=== PATIENT | female | born 1975 | race Caucasian/White ===

== ENCOUNTER 2017-03-14 17:22 | Emergency (ER) | payer OTHER ==
--- NOTE | 2017-03-14 19:34 | RAD ---
INDICATION: No onset headache. COMPARISON: There are no prior studies available for comparison. TECHNIQUE: Contiguous axial sections of the brain were obtained from the skull base to the vertex without contrast. FINDINGS: The ventricles, cisterns and sulci are within normal limits. No significant focal abnormality or mass effect is seen. There is no evidence for hemorrhage. There are small areas of decreased density present toward the skull base in the medial temporal lobes most consistent with Virchow-Kwadwo spaces. No significant focal osseous abnormality is seen. The visualized portion of the paranasal sinuses and mastoid air cells appear clear. IMPRESSION: NO EVIDENCE FOR ACUTE INTRACRANIAL ABNORMALITY.
[2017-03-14] MEDS ORDERED: diPHENhydraMINE IV* 50 MG/ML 1 ml VIAL (BENADRYL) IM ONE (20:08)
[2017-03-14] MEDS ORDERED: Ketorolac INJ* 30 MG/ML 1 ML VIAL IV ONE (20:08)
[2017-03-14] MEDS ORDERED: NS 0.9% 1000 ML* 1,000 ML IV ONE (20:08)
[2017-03-14] MEDS ORDERED: diPHENhydraMINE IV* 50 MG/ML 1 ml VIAL (BENADRYL) IV ONE (20:36)
[2017-03-14] MEDS ORDERED: Acetaminop/Codeine 30 MG TAB* 1 TAB (300 MG/30 MG) PO ONE (21:33)
[2017-03-14 22:02] VITALS: BP 144/98
--- NOTE | 2017-04-06 16:11 | UC ---
Arben Tyler Nikita, scribed for Sindy Patel DO on 03/14/17 at 1903 . Headache HPI - HPI Summary HPI Summary: This patient is a 41 year old F presenting to [facility] with a chief complaint of RIVERS since 2 days ago. The pain went away after taking Tylenol and Ibuprofen. She woke up this morning with a RIVERS that was alleviated by Tylenol, but the pain came back again at 1600. Pt took 1300 mg of Tylenol at that time which did not help symptoms. The CC is described as in the whole head and throbbing; pain is worst in frontal region and back of neck. The patient rates the pain 6/10 in severity. Symptoms aggravated by nothing. Symptoms alleviated by Ibuprofen and Tylenol (last episode did not alleviate symptoms). Patient reports sinus congestion (today). Patient denies fever, chills, diaphoresis, nasal drainage, cough, CP, N/V/D, abdominal pain, urinary symptoms, muscle aches, joint pain, aggravation by bright lights, blurred vision, dizziness, and ringing in ears. Pt has second hand smoke exposure at home. - History Of Current Complaint Chief Complaint: UCHeadache Stated Complaint: HEADACHE Time Seen by Provider: 03/14/17 18:38 Hx Obtained From: Patient Hx Last Menstrual Period: spotting currently Onset/Duration: Sudden Onset - 1st episode was 2 days ago and another one this morning, Still Present Onset Of Symptoms: Sudden, Still Present Initially Headache Was: Initial Pain Scale(0-10)= - 6/10, Moderate Currently Pain Is: Current Pain Scale(0-10)= - 6/10, Moderate Pain Intensity: 6 Pain Scale Used: 0-10 Numeric Timing: Constant - alleviated by Tylenol ion 1st episode but not this episode Character: Throbbing Location of Headache: Diffuse - in head, Frontal - worse in frontal and back of neck Aggravating Factor(s): Nothing Allevating Factor(s): Medication - Ibuprofen and Tylenol in 1st episode Associated Signs And Symptoms: Positive: Other (Noted In Comments) - Patient reports sinus congestion (today). Patient denies fever, chills, diaphoresis, nasal drainage, cough, N/V/D, abdominal pain, urinary symptoms, muscle aches, joint pain, aggravation by bright lights, blurred vision, dizziness, and ringing in ears. - Allergies/Home Medications Allergies/Adverse Reactions: Allergies Allergy/AdvReac Type Severity Reaction Status Date / Time NSAIDs AdvReac GI Upset Verified 03/14/17 17:31 Home Medications: Home Medications Acetaminophen [Tylenol] 1,300 mg PO ONCE PRN 03/14/17 [History Confirmed ] Biotin 1 dose PO DAILY 03/14/17 [History Confirmed 03/14/17] Control 1 tab PO DAILY 03/14/17 [History Confirmed 03/14/17] Venlafaxine ER (NF) [Effexor ER (NF)] 150 mg PO DAILY 03/14/17 [History Confirmed 03/14/17] PMH/Surg Hx/FS Hx/Imm Hx Endocrine History: Diabetes - gestational Cardiovascular History: Hypertension GI/ History: Gastroesophageal Reflux - Surgical History Surgical History: Yes Surgery Procedure, Year, and Place: Cholecystectomy, 2012, [facility] [place]. Gastric Bypass , 2010, [facility] [place]. Left Ankle ORIF, 2004, [facility]. Sinus surgery 2015 - Family History Known Family History: Positive: Hypertension, Diabetes Negative: Cardiac Disease - Social History Alcohol Use: Rare Substance Use Type: None Smoking Status (MU): Former Smoker - Immunization History Most Recent Influenza Vaccination: Fall 2013 Review of Systems Constitutional: Other - Denies fever, chills Skin: Other - Denies diaphoresis Eyes: Other - Denies blurred vision ENT: Sinus Congestion, Other - Denies nasal drainage, ringing in ears Respiratory: Other - Denies cough, SOB Cardiovascular: Other - Denies CP Gastrointestinal: Other - Denies N/V/D, abdominal pain Genitourinary: Other - Denies urinary symptoms Musculoskeletal: Other: - Denies muscle aches, joint pain Neurological: Headache - diffuse in head but worse in frontal region and abck of neck; not aggravated by bright lights, Other - Denies dizziness All Other Systems Reviewed And Are Negative: Yes Physical Exam Triage Information Reviewed: Yes Appearance: Well-Appearing, Well-Nourished, Pain Distress - Mild Vital Signs: Initial Vital Signs Temp 99.1 F 03/14/17 17:25 Pulse 88 03/14/17 17:25 Resp 16 03/14/17 17:25 BP 161/103 03/14/17 17:25 Pulse Ox 99 03/14/17 17:25 Vital Signs Reviewed: Yes Eyes: Positive: Conjunctiva Clear. Negative: Discharge ENT: Positive: Hearing grossly normal, TMs normal. Negative: Tonsillar swelling , Tonsillar exudate, Trismus, Muffled/hoarse voice Neck exam: Normal Neck: Positive: Supple Respiratory: Positive: Lungs clear, Normal breath sounds, No respiratory distress, No accessory muscle use Cardiovascular: Positive: RRR, No Murmur Musculoskeletal Exam: Normal Neurological: Positive: Alert, Muscle Tone Normal, Other: - A&Ox3, CN II-XII INTACT, SENSORY MOTOR INTACT, REFLEXES INTACT, NO CEREBELLAR SIGNS, FACIAL SYMMETRY, NEGATIVE ROMBERG, NORMAL GAIT Psychological Exam: Normal Psychological: Positive: Age Appropriate Behavior Skin Exam: Normal, Other - Warm, Dry, Normal color - Additional Comments GCS 15 Diagnostics - Radiology Brain CT Radiology Interpretation Completed By: Radiologist - NO EVIDENCE FOR ACUTE INTRACRANIAL ABNORMALITY. [facility] physician agrees with this radiology report. Headache Course/Dx - Course Course Of Treatment: This patient is a 41 year old F presenting to [facility] with a chief complaint of RIVERS since 2 days ago. The pain went away after taking Tylenol and Ibuprofen. She woke up this morning with a RIVERS that was alleviated by Tylenol , but the pain came back again at 1600. Pt took 1300 mg of Tylenol at that time which did not help symptoms. The CC is described as in the whole head and throbbing; pain is worst in frontal region and back of neck. The patient rates the pain 6/10 in severity. Symptoms aggravated by nothing. Symptoms alleviated by Ibuprofen and Tylenol (last episode did not alleviate symptoms). Patient reports sinus congestion (today). Patient denies fever, chills, diaphoresis, nasal drainage, cough, CP, N/V/D, abdominal pain, urinary symptoms, muscle aches , joint pain, aggravation by bright lights, blurred vision, dizziness, and ringing in ears. Pt has second hand smoke exposure at home. NO EVIDENCE FOR ACUTE INTRACRANIAL ABNORMALITY. [facility] physician agrees with this radiology report. In the ED course, pt was given fluids, Toradol, and Benadryl. Medications reviewed this visit. High blood pressure noted. Pt will be discharged. Pt is agreeable with this plan. - Differential Dx/Diagnosis Provider Diagnoses: Elevated blood pressure without diagnosis of hypertension. Headache. Discharge - Discharge Plan Condition: Stable Disposition: HOME Patient Education Materials: General Headache (ED) Referrals: Pj Bell MD [Primary Care Provider] - 1 Day (Please follow up with PCP tomorrow.) Additional Instructions: Your blood pressure was elevated at this visit. That does not mean you have hypertension, it is probably due to your current condition. Please follow up with your primary care provider. The documentation as recorded by the Arben burnette Nikita accurately reflects the service I personally performed and the decisions made by me, Sindy Patel DO.
== END 2017-03-14 21:53 | disposition home or self-care (01) ==
LOC: UCEAST 17:22
DX: R51 Headache (principal); R09.81 Nasal congestion; I10 Essential (primary) hypertension; K21.9 Gastro-esophageal reflux disease without esophagitis; Z90.49 Acquired absence of other specified parts of digestive tract; Z98.84 Bariatric surgery status; Z88.6 Allergy status to analgesic agent; Z87.891 Personal history of nicotine dependence
CPT/HCPCS: 70450; 96361; 96365; 96374; 99212; A9270-GY; G0463; J1200; J1885

== ENCOUNTER 2018-03-27 21:09 | Emergency (ER) | payer OTHER ==
--- OUTSIDE RECORDS SUMMARY | 2018-03-27 21:22 | XMS REPORT | Continuity of Care Document ---
:1975 External Reference #:[id number] Author Name Kt Gardner M.D. Address [address] [place] [address] Care Team Providers Name Role Phone Pj Dacosta M.D. 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 [employer] Tobacco Use Start: Unknown Never Smoked Cigarettes Tobacco Use Start: Unknown Never Smoked Cigars Tobacco Use Start: Unknown Never Smoked A Pipe Smokeless Tobacco Never Used Smokeless Tobacco ETOH Use Currently occasionally consumes alcohol Tobacco Use Start: Unknown Patient has never smoked Smoking Status Reviewed: 03/17/18 Patient has never smoked Allergies, Adverse Reactions, Alerts Date Description Reaction Status Severity Comments 03/17/2018 NSAIDS Active due to gastric bypass Medications Medication Date Status Form Strength Qnty SIG Indications Ordering Provider Lisinopril Active Tablets 10mg RobertiovanPj andrews M.D. Sprintec 28 Active Tablets 0.25-35mg-m Digiovanna 000 cg Pj M.D. Venlafaxine Active Caps ER 150mg daily Digiovanna HCL ER 000 24HR Pj M.D. Ropinirole HCL Active Tablets 0.25mg Digiovanna 000 , Thelma N.P. Flintstones Active Chewtabs bid Unknown Complete 000 Calcium Active Tablets 1 by Unknown 000 mouth twice a day Immunizations Description No Information Available Vital Signs Date Vital Result Comment 03/17/2018 10:55am Weight 174.00 lb Weight 78.926 kg Height 61 inches 5'1" Height in cm's 154.9 cm BMI (Body Mass Index) 32.9 kg/m2 Results Description No Information Available Procedures Date Code Description Status 03/17/2018 77823 Nasal Endoscopy, Diagnostic Completed Encounters Type Date Location Provider Dx Diagnosis Office Visit 03/17/2018 11:00a [place] 06/16/07 Kt Gardner R51 Headache Bernda Plan of Treatment 03/17/2018 - Kt Gardner M.D.R51 HeadacheComments:The patient has been having headaches for over a year now and has bene treated with multiple coursesof ABX. And over the past month she has felt worse. She had endoscopic sinus surgery by Dr. Collins for these same symptoms in 2015. She started Sprintec about 2 or 3 years and she started with the headaches around that time. This led to the surgery. She has bene to see Dr. Collins multiple times recently and treated with repeat courses of ABX.Her ENT examination is normal. Her nasal endoscopy shows postsurgical changes without any evidence of sinusitis.I do not think her current symptoms are sinusitis. I think she is having neurologic headaches. Given the association of then starting when she started the Sprintec, I think these are hormone mediated headaches. I want her to talk to her PCP about this. I also asked her to bring me to CD of her preoperative CT scan.If I am correct the question then is why does she feel better with the antibiotics. They also immune modulation effect and work as antiinflammatories. So, I think it is this effect that makes her feel better.
--- NOTE | 2018-03-27 23:15 | ED ---
Hypertension - HPI Summary HPI Summary: Pt is a 42 y/o female who presents to the ED c/o headache for 5 days. She states she normally does not get headaches, and the headache is becoming worse and is currently 7/10 in severity. She was recently diagnosed with HTN and began taking 10 mg Lisinopril 2 months ago. Pt took her medication today, and has been taking Tylenol for the pain as well. She was misdiagnosed with a sinus infection and went to the ENT, where she was given a medication for migraine which did not help. Her BP has been around 180/90 the past few days, but is 201/ 111 in the room. She c/o some nausea but denies any vomiting. - History of Current Complaint Chief Complaint: EDHypertension Stated Complaint: HEADACHE/HIGH BP Time Seen by Provider: 03/27/18 23:06 Hx Obtained From: Patient Hx Last Menstrual Period: spotting currently Onset/Duration: Started Days Ago - 5, Worse Since Timing: Constant Reported Blood Pressure Prior To Arrival: 180/90 Aggravating Factor(s): Nothing Alleviating Factor(s): Nothing Associated Signs & Symptoms: Headaches, Other: - Nausea Related Hx: Diagnosed As: - HTN Current Medications: Other - Lisinopril - Allergies/Home Medications Allergies/Adverse Reactions: Allergies Allergy/AdvReac Type Severity Reaction Status Date / Time MS NSAIDs [NSAIDs] AdvReac GI Upset Verified 03/14/17 17:31 PMH/Surg Hx/FS Hx/Imm Hx Endocrine/Hematology History: Denies: Hx Diabetes, Hx Thyroid Disease Cardiovascular History: Denies: Hx Hypertension Respiratory History: Denies: Hx Asthma, Hx Chronic Obstructive Pulmonary Disease (COPD) GI History: Reports: Hx Gastroesophageal Reflux Disease - no problem recently Denies: Hx Ulcer History: Reports: Hx Kidney Stones - one known stone Sensory History: Reports: Hx Contacts or Glasses - inst glasses day of or Denies: Hx Hearing Aid Opthamlomology History: Reports: Hx Contacts or Glasses - inst glasses day of or - Surgical History Surgery Procedure, Year, and Place: [place] [facility] [place] , [place] [facility] [place] Ankle [place]IF, 2004, [facility]. Sinus surgery 2016 Hx Anesthesia Reactions: Yes - n/v Infectious Disease History: No Infectious Disease History: Denies: Hx Clostridium Difficile, Hx Hepatitis, Hx Human Immunodeficiency Virus (HIV), Hx of Known/Suspected MRSA, Hx Shingles, Hx Tuberculosis, Hx Known/ Suspected VRE, Hx Known/Suspected VRSA, History Other Infectious Disease, Traveled Outside the [place] in Last 30 Days - Family History Known Family History: Positive: Hypertension, Diabetes Negative: Cardiac Disease - Social History Alcohol Use: Rare Hx Substance Use: No Substance Use Type: Reports: None Hx Tobacco Use: Yes Smoking Status (MU): Former Smoker Review of Systems Positive: Nausea. Negative: Vomiting Positive: Headache All Other Systems Reviewed And Are Negative: Yes Physical Exam - Summary Physical Exam Summary: VITAL SIGNS: Reviewed. GENERAL: Patient is a well-developed and nourished FEMALE who is lying comfortable in the stretcher. Patient is not in any acute respiratory distress. HEAD AND FACE: No signs of trauma. No ecchymosis, hematomas or skull depressions. No sinus tenderness. EYES: PERRLA, EOMI x 2, No injected conjunctiva, no nystagmus. EARS: Hearing grossly intact. Ear canals and tympanic membranes are within normal limits. MOUTH: Oropharynx within normal limits. NECK: Supple, trachea is midline, no adenopathy, no JVD, no carotid bruit, no c- spine tenderness, neck with full ROM. CHEST: Symmetric, no tenderness at palpation LUNGS: Clear to auscultation bilaterally. No wheezing or crackles. CVS: Regular rate and rhythm, S1 and S2 present, no murmurs or gallops appreciated. ABDOMEN: Soft, non-tender. No signs of distention. No rebound no guarding, and no masses palpated. Bowel sounds are normal. EXTREMITIES: FROM in all major joints, no edema, no cyanosis or clubbing. NEURO: Alert and oriented x 3. No acute neurological deficits. Speech is normal and follows commands. SKIN: Dry and warm Triage Information Reviewed: Yes Vital Signs On Initial Exam: Initial Vitals Temp Pulse Resp BP Pulse Ox 97.7 F 91 18 192/121 99 03/27/18 21:11 03/27/18 21:11 03/27/18 21:11 03/27/18 21:11 03/27/18 21:11 Vital Signs Reviewed: Yes Diagnostics - Vital Signs Vital Signs Temp Pulse Resp BP Pulse Ox 03/27/18 21:11 97.7 F 91 18 192/121 99 - Laboratory Result Diagrams: 03/28/18 00:02 03/28/18 00:02 Lab Statement: Any lab studies that have been ordered have been reviewed, and results considered in the medical decision making process. - Radiology CXR Xray Interpretation: No Acute Changes - No acute changes. Pending official radiology report. Radiology Interpretation Completed By: ED Physician - EKG 00:25 Cardiac Rate: NL - 60 bpm EKG Rhythm: Sinus Rhythm EKG Interpretation: Normal axis. Normal interval. No ischemic changes. Re-Evaluation - Re-Evaluation First Eval Re-Evaluation Time: 00:21 Change: Worse Comment: Pt now has bilateral CP. Hypertension Course/Dx - Course Course Of Treatment: Pt is a 42 y/o female who presents to the ED c/o headache for 5 days. She states she normally does not get headaches, and the headache is becoming worse and is currently 7/10 in severity. She was recently diagnosed with HTN and began taking 10 mg Lisinopril 2 months ago. Pt took her medication today, and has been taking Tylenol for the pain as well. She was misdiagnosed with a sinus infection and went to the ENT, where she was given a medication for migraine which did not help. Her BP has been around 180/90 the past few days , but is 201/111 in the room. She c/o some nausea but denies any vomiting. A physical exam was normal. A CXR was negative. An EKG revealed a rate of 60 bpm. At 00:21 pt began to have bilateral CP. Final dx is hypertension. She is discharged and is to F/U with her PCP on 03/30/18. - Diagnoses Provider Diagnoses: Hypertension Discharge - Sign-Out/Discharge Documenting (check all that apply): Patient Departure - Discharge - Discharge Plan Condition: Stable Disposition: HOME Prescriptions: Lisinopril TAB* [Prinivil TAB 5 MG*] 5 mg PO DAILY #30 tab Patient Education Materials: Hypertension (ED) Forms: *Work Release Referrals: Pj Bell MD [Primary Care Provider] - 2 Days Additional Instructions: RETURN TO THE EMERGENCY DEPARTMENT FOR CHANGING OR WORSENING SYMPTOMS. FOLLOW UP WITH PCP IN 1-2 DAYS. - Attestation Statements Document Initiated by Scribe: Yes Documenting Scribe: Carlotta Rodriguez Provider For Whom Scribe is Documenting (Include Credential): Austen Lira MD Scribe Attestation: Carlotta Tyler, scribed for Austen Lira MD on 03/28/18 at 0136.
[2018-03-27] MEDS ORDERED: Labetalol IV* 5 MG/ML 20 ML VIAL IV PUSH ONE (23:17)
[2018-03-27] MEDS ORDERED: Morphine INJ* 4 MG/ML 1 ML SYRINGE (NEW SYRINGE VERSION) IV ONE (23:17)
[2018-03-27] MEDS ORDERED: Metoclopramide IV* 5 MG/ML 2 ML VIAL IV SLOW PU ONE (23:17)
[2018-03-27] MEDS ORDERED: diPHENhydraMINE PO* 50 MG PO ONE (23:29)
[2018-03-28] MEDS ORDERED: Morphine INJ* 4 MG/ML 1 ML SYRINGE (NEW SYRINGE VERSION) IV ONE (00:25)
[2018-03-28 00:26] LABS: Hematocrit 34 % (35-47); Hemoglobin 11.3 g/dl (12.0-16.0); Mean Corpuscular HGB Conc 33 g/dl (31-36); Mean Corpuscular Hemoglobin 26 pg (27-31); Mean Corpuscular Volume 79 fL (80-97); Mean Platelet Volume 7.6 um3 (7.4-10.4); Platelet Count 328 10^3/ul (150-450); Red Cell Distribution Width 15 % (10.5-15); White Blood Count 8.5 10^3/ul (3.5-10.8)
[2018-03-28 00:31] LABS: ABS Basophils 0 10^3/ul (0-0.2); ABS Eosinophils 0.1 10^3/ul (0-0.6); ABS Lymphocytes 4.1 10^3/ul (1.0-4.8); ABS Monocytes 0.4 10^3/ul (0-0.8); ABS Nucleated RBC 0 10^3/ul; Lymphocyte % 47.4 % (25-47); Nucleated Red Blood Cells % 0.1
[2018-03-28 00:36] LABS: EGFR Non-African American 109.6 (>60)
[2018-03-28 00:53] LABS: INR 0.88 (0.77-1.02)
[2018-03-28 01:36] VITALS: BP 102/64
--- NOTE | 2018-03-28 08:51 | RAD ---
Indication: Chest pain. Single frontal view of the chest performed at 0056 hours was reviewed. No prior study is available for comparison. No mediastinal shift is noted. Heart is of normal size and configuration. Lung quijano appear clear. IMPRESSION: NO ACTIVE CARDIOPULMONARY DISEASE IS NOTED. R0
== END 2018-03-28 01:49 | disposition home or self-care (01) ==
LOC: ED 21:09
DX: I10 Essential (primary) hypertension (principal); R51 Headache; R11.0 Nausea; Z87.891 Personal history of nicotine dependence
CPT/HCPCS: 36415; 71045; 80053; 82550; 83735; 83880; 84484; 85025; 85379; 85610; 85730; 93005; 96374; 96375; 99282; A9270-GY; J2270; J2765

== ENCOUNTER 2018-05-08 20:53 | Emergency (ER) | payer OTHER ==
--- OUTSIDE RECORDS SUMMARY | 2018-05-08 21:02 | XMS REPORT | Continuity of Care Document ---
:1975 External Reference #:[id number] Author Name Kt Gardner M.D. Address [address] [place] [address] Care Team Providers Name Role Phone Pj Dacosta M.D. 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 [employer] Tobacco Use Start: Unknown Never Smoked Cigarettes Tobacco Use Start: Unknown Never Smoked Cigars Tobacco Use Start: Unknown Never Smoked A Pipe Smokeless Tobacco Never Used Smokeless Tobacco ETOH Use Currently occasionally consumes alcohol Tobacco Use Start: Unknown Patient has never smoked Smoking Status Reviewed: 04/13/18 Patient has never smoked Allergies, Adverse Reactions, Alerts Date Description Reaction Status Severity Comments 03/17/2018 NSAIDS Active due to gastric bypass Medications Medication Date Status Form Strength Qnty SIG Indications Ordering Provider Mupirocin 03/31/ Active Ointment 2% 45gm instill / Kt Zhang 2018 into 25 ml Strominge NS and r, M.D. irrigate sinuses with NeilMed sinus rinse 2 times daily. Doxycycline 03/31/ Active Capsules 100mg 28cap take 1 tab Kt NLluvia Monohydrate 2018 s 2 times a Strominge day for 2 r, M.D. weeks Saline Flush 03/31/ Active Solution 0.9% 1000m For use Kt Zhang 2018 l with Strominge Ivonne turpin M.D. irrigation kit Rizatriptan 03/27/ Active Tablets 5mg 2tabs place on R51 Kt Nicholson 2017 Dispers tongue and Strominge allow to Brenda turpin disolve, then swallow. May repeat in 2 hours if headache persists. Do not take more than 2 in 24 hours. Lisinopril / Active Tablets 20mg Digiovann 0000 Pj abbasi M.D. Sprintec 28 / Active Tablets 0.25-35mg- Digiovann 0000 mcg Pj abbasi M.D. Venlafaxine HCL / Active Caps ER 150mg daily Digiovann ER 0000 24HR Pj abbasi M.D. Ropinirole HCL / Active Tablets 0.25mg Digiovann 0000 a Thelma N.PLluvia Flintstones / Active Chewtabs bid Unknown Complete 0000 Calcium / Active Tablets 1 by mouth Unknown 0000 twice a day Amoxicillin/Cla / Active Tablets 875-125mg Unknown vulanate 0000 Potassium Prednisone / Active Tablets 20mg Digiovann 0000 Pj abbasi M.D. Amitriptyline / Active Tablets 25mg Digiovann HCL 0000 Pj abbasi M.D. Metoprolol / Active Tablets 50mg Digiovann Tartrate 0000 Pj abbasi M.D. Immunizations Description No Information Available Vital Signs Date Vital Result Comment 03/27/2018 10:53am Weight 174.00 lb Weight 78.926 kg Height 61 inches 5'1" Height in cm's 154.9 cm BMI (Body Mass Index) 32.9 kg/m2 03/17/2018 10:55am Weight 174.00 lb Weight 78.926 kg Height 61 inches 5'1" Height in cm's 154.9 cm BMI (Body Mass Index) 32.9 kg/m2 Results Test Date Facility Test Result H/L Range Note Wound 03/27/2018 [facility] Wound/Misc SEE RESULT 1, 2 Culture/Sensi c/o Department of [place] [address] Stain [phone] 1 [id number] 2 SEE RESULT BELOW Name: LAURA CUENCA : [address]: Liz Ruiz PA-C Acct: [id number] Unit: [id number] AGE: 42 Location: [facility] Re03/27/18 SEX: F Status: REG REF SPEC: [id number] JENN: 03/27/[address] [facility] [address]: Liz Begum REQ: [id number] RECD: 03/27/18 STATUS: COMP _ SOURCE: MISC SOURC SPDESC:MAXILLARY ORDERED: Culture Stain COMMENTS: [id number] QUERIES: Specimen Description LEFT MAXILLARY SINUS Procedure Result Reported Site Wound/Misc Gram Stain Final 03/27/18- 1749 ML 3+ Neutrophils No Organisms Seen Wound/Misc Culture Final 03/31/18- 1128 ML Organism 1 MRSA Quantity 1+ Organism 2 STAPHYLOCOCCUS EPIDERMIDIS Quantity 1+ Organism 3 CORYNEBACTERIUM SPECIES Quantity 1+ 1. MRSA M.I.C. RX --------- ------ Penicillin >=0.5 R Clindamycin R This isolate is presumed to be resistant based on detection of inducible Clindamycin resistance. Clindamycin may still be effective in some patients. Erythromycin >=8 R Gentamicin <=0.5 S Linezolid 2 S Oxacillin R * Quinupristin/Dalfopristin <=0.25 S Rifampin <=0.5 S Tetracycline <=1 S Doxycycline - Deduced S CONTINUED ON NEXT PAGE DEPARTMENT OF PATHOLOGY, [address] [place] [address] Brayden Banuelos M.D. Director HAROLDO # [id number] Patient: LAURA CUENCA [id number] (Continued) Specimen: [id number] Collected: 03/27/18 Received: 03/27/18 (Continued) Procedure Result Reported Site Wound/Misc Culture Final (continued) 03/31/181127 1. MRSA (continued) M.I.C. RX --------- ------ * Minocycline - Deduced S Trimethoprim/Sulfamethoxazole <=10 S Vancomycin 1 S Imipenem-Deduced R * Ampicillin/Sulbactam-Deduced R Cefazolin-Deduced R 2. STAPHYLOCOCCUS EPIDERMIDIS M.I.C. RX --------- ------ Penicillin >=0.5 R Clindamycin >=8 R Erythromycin >=8 R Gentamicin <=0.5 S Linezolid 1 S Oxacillin >=4 R * Quinupristin/Dalfopristin <=0.25 S Rifampin <=0.5 S Tetracycline 2 S Doxycycline - Deduced S * Minocycline - Deduced S Tigecycline 0.25 S Vancomycin 1 S Imipenem-Deduced R * Ampicillin/Sulbactam-Deduced R Cefazolin-Deduced R * These antibiotics are not available in the [facility] Formulary Contact the Microbiology Department for any additional antibiotic reporting. * ML - Main Lab . END OF REPORT DEPARTMENT OF PATHOLOGY, [address] [place] [address], [place] [address] Brayden Banuelos M.D. Director [facility] # [id number] Procedures Date Code Description Status 03/27/2018 85499 Nasal Endoscopy, Diagnostic Completed 03/17/2018 05852 Nasal Endoscopy, Diagnostic Completed Encounters Type Date Location Provider Dx Diagnosis Office Visit 04/13/2018 [place] Kt Zhang G43.101 Migraine with aura, 3:30p 06/16/07 Brenda Gardner not intractable, with status migrainosus A49.02 Methicillin resis staph infection, unsp site Office Visit 03/27/2018 10:45a [place] 06/16/07 Liz Ruiz PA-C R51 Headache Office Visit 03/17/2018 11:00a [place] 06/16/07 Kt Gardner, [place] Headache M.DLluvia Plan of Treatment 04/13/2018 - Kt Gardner M.D.G43.101 Migraine with aura, not intractable, with status migrainosusComments:The patient returns today for her headache and after being diagnosed MRSA in her sinus. I have had the opportunity to review a head CT from 2009 and 2014, a sinus CT from 2016 (pre op her endoscopic sinus surgery) and a head CT from 2018 from her recent ER visit for which she was told she had sinusitis. In no instance is there any evidence of sinusitis causing any symptoms. All of her preoperative CT's her sinuses are essentially normal. Therefore, I am not surprised the sinus surgery did not fix her headaches. there was some fluid in the floor of the maxillary sinus on her recent head CT but I can't imagine this was symptomatic. She is feeling better after stopping her BCP and the Rizatriptandid help. I recommended she see how she does over a few months off of the hormone therapy. A good maintenance medication or her would be Topamax because she is also trying to lose weight and is not trying to get . The MRSA was an incidental finding to her headaches. It is being treated with the Doxycycline and the Mupirocin. 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
[2018-05-08 21:10] VITALS: BP 151/98
--- NOTE | 2018-05-08 21:14 | UC ---
Back Pain HPI - HPI Summary HPI Summary: slipped on any icy step earlier today and fell landing on her low back. c/o pain across her low back. - History of Current Complaint Stated Complaint: BACK INJURY Time Seen by Provider: 05/08/18 21:00 Hx Obtained From: Patient Hx Last Menstrual Period: spotting currently Onset/Duration: Sudden Onset Timing: Constant Aggravating Factor(s): Movement Associated Signs And Symptoms: Negative: Fever, Weakness, Numbness, Tingling, Abdominal Pain, Bladder Incontinence, Bowel Incontinence - Risk Factors Cauda Equina Risk Factors: Negative - Allergies/Home Medications Allergies/Adverse Reactions: Allergies Allergy/AdvReac Type Severity Reaction Status Date / Time NSAIDS (Non-Steroidal AdvReac gastric Verified 05/08/18 21:11 Anti-Inflamma bypass Home Medications: Home Medications Acetaminophen [Extra Strength Non-Aspirin] 1,000 mg PO Q6H PRN 05/08/18 [ History Confirmed 05/08/18] Lisinopril 20 mg PO DAILY 05/08/18 [History Confirmed 05/08/18] Metoprolol Tartrate TAB* [Lopressor TAB*] 50 mg PO BID 05/08/18 [History Confirmed 05/08/18] PMH/Surg Hx/FS Hx/Imm Hx Cardiovascular History: Hypertension Psychological History: Depression - Surgical History Surgical History: Yes Surgery Procedure, Year, and Place: Cholecystectomy, 2012, [facility] [place]. Gastric Bypass , 2010, [facility] [place]. Left Ankle ORIF, 2004, [facility]. Sinus surgery 2015 - Family History Known Family History: Positive: Hypertension, Diabetes Negative: Cardiac Disease - Social History Alcohol Use: Rare Substance Use Type: None Smoking Status (MU): Former Smoker - Immunization History Most Recent Influenza Vaccination: Fall 2013 Vaccination Up to Date: Yes Review of Systems All Other Systems Reviewed And Are Negative: Yes Constitutional: Positive: Negative Skin: Positive: Negative Eyes: Positive: Negative ENT: Positive: Negative Respiratory: Positive: Negative Cardiovascular: Positive: Negative Gastrointestinal: Positive: Negative Genitourinary: Positive: Negative Motor: Positive: Negative Neurovascular: Positive: Negative Musculoskeletal: Positive: Other: - pain across low back Neurological: Positive: Negative Psychological: Positive: Negative Is Patient Immunocompromised?: No Physical Exam Triage Information Reviewed: Yes Appearance: Well-Appearing Vital Signs Reviewed: Yes Eyes: Positive: Conjunctiva Clear ENT: Positive: Normal ENT inspection Neck: Positive: Supple, Nontender, No Lymphadenopathy, Other: - c-spine non tender Respiratory: Positive: Lungs clear, Normal breath sounds Cardiovascular: Positive: RRR, No Murmur Abdomen Description: Positive: Nontender, No Organomegaly, Soft. Negative: Distended, Guarding Bowel Sounds: Positive: Present Musculoskeletal: Positive: Other: - thoracic and lumbar regions with no gross deformity, swelling or discoloration. Diffusely tender over lumbar region with limited flexion at waiste due to low back pain. 5/5 strength, 2+ reflex and sensation intact x4. No saddle anesthesia. Normal steady gait. Neurological: Positive: Alert Psychological: Positive: Age Appropriate Behavior Skin Exam: Normal Diagnostics - Radiology No standard instances Radiology Interpretation Completed By: ED Physician - wet read LS spine=deg changes. no fx/dislocation Back Pain Course/Dx - Course Course Of Treatment: pt declined work restrictions - Differential Dx/Diagnosis Differential Diagnosis/HQI/PQRI: Fracture, Strain, Sprain Provider Diagnoses: Acute low back pain post fall Discharge - Sign-Out/Discharge Documenting (check all that apply): Patient Departure All imaging exams completed and their final reports reviewed: No - Discharge Plan Condition: Stable Disposition: HOME Prescriptions: Cyclobenzaprine TAB* [Flexeril 10 MG TAB*] 10 mg PO TID PRN #10 tab PRN Reason: Spasms - Back Patient Education Materials: Acute Low Back Pain (ED) Referrals: Pj Bell MD [Primary Care Provider] - 5 Days - Billing Disposition and Condition Condition: STABLE Disposition: Home
[2018-05-08] MEDS ORDERED: Cyclobenzaprine TAB* 10 MG PO ONE (21:15)
--- NOTE | 2018-05-12 22:23 | UC ---
- Progress Note Progress Note: Patient Name: LAURA GARCIA Medical Record#: [id number] Ordering Physician: Deonna MENDOZA Acct.#: [id number] : 1975 Age: 42 Sex: F [place] [facility] [place] Date: 05/08/182109 ADM Status: DEP ER Order Information: SP LUMBAR AP/ LAT 2-3 VIEWS Accession Number: [id number] CPT: 73937 Indication: Back pain after fall 3 views of the lumbar spine demonstrate vertebral bodies to be normal in height. Disc space narrowing at T12-L1 is noted with osteophyte formation. Spinal canal appears to be intact. IMPRESSION: Degenerative disc disease at T12-L1. <Electronically signed by Geovanna Santamaria MD in OV> 05/09/18903 Dictated By: Geovanna Santamaria MD Dictated Date/Time: 05/09/18903 Transcribed Date/Time: 05/09/18902 Copy to: CC:Pj Bell MD.; Deonna MENDOZA; Rupal Oakley MD Imaging - [facility] Imaging [facility] [address] [place] [address] ph [phone]) ph [phone]) ph ([phone]) This report is only to be considered final once signed by the Provider(s) as displayed in the "<Electronically Signed by >" field (s). Absence of a signature indicates the report is in a draft status and still needs to be finalized. In the event this document was created by someone other than the signing Provider, the individual initiating the document will be listed in the "Entered by:" or "Dictated by:" quijano. 1 of 1 Course/Dx - Diagnoses Provider Diagnoses: Back pain Discharge - Sign-Out/Discharge Documenting (check all that apply): Post-Discharge Follow Up All imaging exams completed and their final reports reviewed: Yes - Discharge Plan Condition: Stable Disposition: HOME Prescriptions: Cyclobenzaprine TAB* [Flexeril 10 MG TAB*] 10 mg PO TID PRN #10 tab PRN Reason: Spasms - Back Patient Education Materials: Acute Low Back Pain (ED) Referrals: Pj Bell MD [Primary Care Provider] - 5 Days - Billing Disposition and Condition Condition: STABLE Disposition: Home
== END 2018-05-08 21:44 | disposition home or self-care (01) ==
LOC: UCCORT 20:53
DX: M54.5 Low back pain (principal); W00.1XXA Fall from stairs and steps due to ice and snow, initial encounter; Y92.9 Unspecified place or not applicable; Z87.891 Personal history of nicotine dependence; I10 Essential (primary) hypertension; Z88.6 Allergy status to analgesic agent
CPT/HCPCS: 72100; 99212; A9270-GY; G0463

== ENCOUNTER 2018-12-28 19:11 | Emergency (ER) | payer OTHER ==
--- OUTSIDE RECORDS SUMMARY | 2018-12-28 19:16 | XMS REPORT | Continuity of Care Document ---
:1975 External Reference #:[id number] Author Name Genie Brower MD Address [address] [place] [address] Care Team Providers Name Role Phone Pj Dacosta MD Care Team Information Agricultural Systems Specialist Unavailable Pj Dacosta MD Primary Care Physician Unavailable Payers Date Identification Numbers Payment Provider Subscriber Policy Number: [id number] [employer] Risa Cuenca PayID: [id number] [address] [address] [place] [address] Problems Active Problems Provider Date Arthralgia of the ankle and/or foot Isaiah Garcia M.D. 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 Unemployed Hand Dominance Left-handed ADL's/IADL's Independent with all ADL's ADL's/IADL's Independent with all IADL's Abuse No history of abuse Tobacco Use Start: Unknown Never Smoked Cigarettes ETOH Use Currently consumes alcohol socially Recreational Drug Use Denies Drug Use Enjoy Exercising Patient enjoys exercising 3-4 TIMES PER WEEK Tattoo/Piercing Negative For Tattoo Tattoo/Piercing Pierced ears Currently Active Patient is currently sexually active Contraceptive Methods Mirena Age 1st [place] 16 Years Old # Partners in a Lifetime 4 # Partners in a Lifetime Has been with current partner for 3 years STD's No STD History Allergies, Adverse Reactions, Alerts Active Allergies Reaction Severity Comments Date NKDA 12/08/2018 NSAIDs gastric bypass 12/08/2018 Inactive Allergies NKDA 04/24/2010 Medications Active Medications SIG Qnty Indications Ordering Provider Date Tramadol HCL 1 tablet by 7tabs M25.572 Genie Brower MD 12/08/2018 50mg mouth every 24 Tablets hours as needed pain Tylenol 8 Hour 1 tab every 6 60tabs Isaiah Garcia M.D. 02/26/2017 650mg hours as needed Tablets ER Flintstones Unknown Vitamin B-12 Unknown 1000mcg Tablets Sub Calcium Unknown 500mg Tablets Biotin Unknown 5mg Capsules Venlafaxine HCL ER Digiovanna, Pj Ely MD 150mg Caps ER 24HR Lisinopril 1 by mouth every Unknown 20mg Tablets day History Medications Tramadol HCL 1 tablet every 14tabs Isaiah Garcia, 03/26/2017 - 50mg Tablets 6 hours as M.DLluvia 12/08/2018 needed for pain mdd 4 Hydrochlorothiazide 1 po qd Unknown - 12.5mg Tablets 01/03/2015 Omeprazole 1 po qd 30caps Unknown - 10mg Capsules DR 01/03/2015 Multivitamins 1 by mouth Unknown - Capsules every day 01/03/2015 Sprintec 28 Oh, Aguila-MD Ermias - 0.25-35mg-mcg Tablets 12/08/2018 Vital Signs Date Vital Result Comment 12/08/2018 2:18pm BP Systolic 112 mmHg BP Diastolic 78 mmHg Body Temperature 98.2 F Heart Rate 81 /min Height 61 inches 5'1" Weight 174.00 lb BMI (Body Mass Index) 32.9 kg/m2 BSA (Body Surface Area) 1.78 m2 [place] body weight in kilograms 48 kg O2 % BldC Oximetry 97 % 03/26/2017 1:56pm BP Systolic Sitting Right Arm 143 mmHg BP Diastolic Sitting Right Arm 98 mmHg Body Temperature 99.6 F Heart Rate 96 /min 03/26/2017 1:09pm BP Systolic 179 mmHg BP Diastolic 133 mmHg Heart Rate 96 /min 02/20/2017 3:06pm BP Systolic Sitting Right Arm 151 mmHg BP Diastolic Sitting Right Arm 95 mmHg Body Temperature 98.0 F Heart Rate 97 /min Height 62 inches 5'2" Weight 163.38 lb BMI (Body Mass Index) 29.9 kg/m2 BSA (Body Surface Area) 1.75 m2 [place] body weight in kilograms 50 kg 04/24/2010 9:31am Heart Rate 78 /min Respiratory Rate 18 /min Height 62 inches 5'2" Weight 226.00 lb BMI (Body Mass Index) 41.3 kg/m2 Last Menstrual Period 0 Results Test Date Facility Test Result H/L Range Note Laboratory test 04/24/2010 [facility] ThinPrep Pap: See Note [address] [place] [address] [phone] CYTOLOGY SCREENER Screened by: ALAN Burgos(ASCP) PAP: FINAL REPORT SPECIMEN ADEQUACY: SPECIMEN SATISFACTORY FOR INTERPRETATION INTERPRETATION: NEGATIVE FOR INTRAEPITHELIAL LESION OR MALIGNANCY BENIGN REACTIVE SQUAMOUS CELL CHANGES COMMENT: SHIFT IN RITESH SUGGESTIVE OF BACTERIAL VAGINOSIS BENIGN CELLULAR CHANGES IN ENDOCERVICAL CELLS MODERATE INFLAMMATION THINPREP PREPARED PAP SLIDE # Prepared in the Cytology laboratory from the ThinPrep sample is 1 ThinPrep smear. 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 Post ? Menopause? LMP date: 10/2009 Last Pap: at [facility]? Abnormal Pap? If Yes, date: 10/2008 If patient had related surgical procedure: Related Therapy: IUD: Y Oral Contraception: Depo: Nova Ring: Hormone Replacement: Significant Clinical History: V72.31 DISCLAIMER: The Pap smear is a screening test and not a diagnostic procedure. False negative and false positive results can and do occur for a number of reasons. Regular screening provides an aid in detecting treatable cervical abnormalities, but should not be used as the only means for detecting cervical dysplasia and carcinoma. Signed ALBERTO HINSON MD 04/26/10 Procedures Date Code Description Status 12/08/2018 79323 Radiology, Ankle Complete Completed 03/26/201753440 Aspiration/Injection joint Completed intermediate(wrist/ankle/elbow/olbursa 02/20/2017 58252 Radiology, Ankle Complete Completed 02/20/2017 99108 Radiology, Ankle Complete Completed 01/03/2015 03480 Nerve Conduction 7-8 Studies Completed 01/03/2015 37659 Needle Electromyography Complete, Five Or More Muscles Completed Studied 11/13/2005 72927 Trimalleolar ankle fracture w/wo int/ext fixation open Completed Encounters Type Date Location Provider Dx Diagnosis Office Visit 03/26/2017 Orthopaedic Office Isaiah Garcia, M25.572 Pain in left ankle 1:15p M.D. and joints of left foot Office Visit 09/24/2011 Cardiology Office John Mccollum, 786.50 Pain Chest Unspec 11:08a , PhD Office Visit 12/09/2006 Orthopaedic Office Julia Gaston 824.6 FX Ankle 11:45a MD Migel Trimalleolar Closed V54.09 Other Aftercare Involving Internal Fixation Device Plan of Treatment Future Appointment(s):01/19/2019 3:00 pm - Genie Brower MD at Orthopaedic Kxjagf8012/08/2018 - Genie Brower MDM25.572 Pain in left ankle and joints of left footM65.879 Other synovitis and tenosynovitis, unspecified ankle and fooNew Medication:Tramadol HCL 50 mgNew Therapy:Physical/Occupational Therapy
--- OUTSIDE RECORDS SUMMARY | 2018-12-28 19:16 | XMS REPORT | Continuity of Care Document ---
:1975 External Reference #:[id number] Author Name Kell Calderon Care Team Providers Name Role Phone Pj Dacosta MD Care Team Information Transport Coordinator Unavailable Pj Dacosta MD Primary Care Physician Unavailable Payers Date Identification Numbers Payment Provider Subscriber Policy Number: [id number] [employer] Risa Cuenca PayID: [id number] [address] [address] [place] [address] Problems Active Problems Provider Date Arthralgia of [...] sexually active Contraceptive Methods Mirena Age 1st [place] 16 Years Old # Partners in a Lifetime 4 # Partners in a Lifetime Has been with current partner for 3 years STD's No STD History Allergies, Adverse Reactions, Alerts Active Allergies Reaction Severity Comments Date NKDA 12/08/2018 NSAIDs gastric bypass 12/08/2018 Inactive Allergies NKDA 04/24/2010 Medications Active Medications SIG Qnty Indications Ordering Provider Date Tylenol 8 Hour 1 tab every 6 [...] 03/26/2017 - 50mg Tablets 6 hours as M.D. 12/08/2018 needed for pain mdd 4 Hydrochlorothiazide 1 po qd Unknown - 12.5mg Tablets 01/03/2015 Omeprazole 1 po qd 30caps Unknown - 10mg Capsules DR 01/03/2015 Multivitamins 1 by mouth Unknown - Capsules every day 01/03/2015 Sprintec 28 Oh, MD Nikole - 0.25-35mg-mcg Tablets 12/08/2018 Vital Signs Date Vital Result Comment 12/08/2018 2:18pm BP Systolic 112 mmHg BP Diastolic 78 mmHg Body Temperature 98.2 F Heart Rate 81 /min Height 61 inches 5'1" Weight 174.00 lb BMI (Body Mass Index) 32.9 kg/m2 BSA (Body Surface Area) 1.78 m2 [place] body weight in kilograms 48 kg O2 [...] kg/m2 BSA (Body Surface Area) 1.75 m2 [place] body weight in kilograms 50 kg 04/24/2010 9:31am Heart Rate 78 /min Respiratory Rate 18 /min Height 62 inches 5'2" Weight 226.00 lb BMI (Body Mass Index) 41.3 kg/m2 Last Menstrual Period 0 Results Test Date Facility Test Result H/L Range Note Laboratory test 04/24/2010 [facility] ThinPrep Pap: See Note [address] [place] [place] [address] [phone] CYTOLOGY SCREENER Screened by: ALAN Burgos(ASCP) [...] QUESTIONNAIRE 06/25 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 Post ? Menopause? LMP date: 10/2009 Last Pap: at [facility]? Abnormal Pap? If Yes, date: 10/2008 [...] MD 04/26/10 Procedures Date Code Description Status 03/26/2017 88828 Aspiration/Injection joint Completed intermediate(wrist/ankle/elbow/olbursa 02/20/2017 68453 Radiology, Ankle Complete Completed 02/20/2017 42423 Radiology, Ankle Complete Completed 01/03/2015 19919 Nerve Conduction 7-8 Studies Completed 01/03/2015 18528 Needle Electromyography Complete, Five Or More Muscles Completed Studied 11/13/2005 93633 Trimalleolar ankle fracture w/wo int/ext fixation open [...]
[2018-12-28 19:24] VITALS: BP 121/71
--- NOTE | 2018-12-28 19:32 | UC ---
Dental HPI - HPI Summary HPI Summary: 43 y/o female presents to the urgent care c/o Left upper toothache radiating to her left ear for the past 2 days. Pt reports she had a dental filling done about 2 years ago in the same molar. Pain is 5/10 when she chews anything. She is allergic to NSAID's and w/ H xof Gastric By pass in 2010. Pt has been taking Tylenol PO to alleviate symptoms. Pt has an appt w/ her Dentist this coming Friday. Pt denies fever, trismus, Mane, dizziness, SOB, chest pain, abdominal pain , N/V/d. - History of Current Complaint Stated Complaint: DENTAL Time Seen by Provider: 12/28/18 19:23 Hx Obtained From: Patient Hx Last Menstrual Period: spotting currently ?: No Onset/Duration: Gradual Onset, Lasting Days - 2 days, Still Present Severity: Moderate Pain Intensity: 5 Pain Scale Used: 0-10 Numeric Aggravating Factor(s): Chewing Alleviating Factor(s): OTC Meds - Tylenol PO Related History: Previous Dental Care on Same Tooth - 2 years ago - Allergies/Home Medications Allergies/Adverse Reactions: Allergies Allergy/AdvReac Type Severity Reaction Status Date / Time NSAIDS (Non-Steroidal AdvReac gastric Verified 12/28/18 19:25 Anti-Inflamma bypass Home Medications: Home Medications Topiramate TAB(*) [Topamax 25 MG tab] 50 mg PO BID 12/28/18 [History Confirmed 12/28/18] PMH/Surg Hx/FS Hx/Imm Hx Previously Healthy: Yes Cardiovascular History: Hypertension Neurological History: Migraine Psychological History: Anxiety, Depression - Surgical History Surgical History: Yes Surgery Procedure, Year, and Place: Gastric bypass 2010. cholecystectomy 2011. sinus surgery 2005 - Family History Known Family History: Positive: Hypertension, Diabetes Negative: Cardiac Disease - Social History Occupation: Employed Full-time Lives: With Family Alcohol Use: Occasionally Substance Use Type: None Smoking Status (MU): Never Smoked Tobacco When Did the Patient Quit Smoking/Using Tobacco: 1997 - Immunization History Most Recent Influenza Vaccination: Fall 2013 Vaccination Up to Date: Yes Review of Systems All Other Systems Reviewed And Are Negative: Yes Constitutional: Positive: Negative Skin: Positive: Negative Eyes: Positive: Negative ENT: Positive: Dental Pain - Left uuper tooth pain w/ mild swelling radiating to her left ear Respiratory: Positive: Negative Cardiovascular: Positive: Negative Gastrointestinal: Positive: Negative Genitourinary: Positive: Negative Motor: Positive: Negative Neurovascular: Positive: Negative Musculoskeletal: Positive: Negative Neurological: Positive: Negative Psychological: Positive: Negative Is Patient Immunocompromised?: No Physical Exam - Summary Physical Exam Summary: Vital Signs Reviewed: Yes General: Well-Appearing, Well-Nourished female sitting in the examining table w /o any respiratory or pain distress Eyes: Positive: Conjunctiva Clear - PERRLA, EOMI, ENT: Positive: Normal ENT inspection, Hearing grossly normal, Pharynx normal, TMs normal - B/L external ear canals clear,. Negative: Tonsillar swelling, Tonsillar exudate, Trismus Dental: Positive: Mild Caries on molar #14 w/ gingival swelling and erythema, tender to percussion. involves tissue surrounding this molar, w/ positive anterior Cervical Lymphadenopathy. Neck: Positive: Supple Respiratory: Positive: Chest non-tender, Lungs clear, Normal breath sounds, No respiratory distress Cardiovascular: Positive: RRR, No Murmur, Pulses Normal, Brisk Capillary Refill Abdomen Description: Positive: Nontender, No Organomegaly, Soft. Negative: CVA Tenderness (R), CVA Tenderness (L) Bowel Sounds: Positive: Present Musculoskeletal: Positive: Strength Intact, ROM Intact, No Edema Neurological Exam: Normal Psychological Exam: Normal Skin Exam: Normal Triage Information Reviewed: Yes Dental Complaint Course/Dx - Course Course Of Treatment: 43 y/o female presents to the urgent care c/o Left upper toothache radiating to her left ear for the past 2 days. Pt reports she had a dental filling done about 2 years ago in the same molar. Pain is 5/10 when she chews anything. She is allergic to NSAID's and w/ H xof Gastric By pass in 2010. Pt has been taking Tylenol PO to alleviate symptoms. Pt has an appt w/ her Dentist this coming Friday. Pt denies fever, trismus, Mane, dizziness, SOB, chest pain, abdominal pain , N/V/d. Hx obtained.Pt with dental abscess around molar #14 w/ mild decay on examination. Pt is allergic to NSAIDs. Pt given viscous Lidocaine at the clinic to alleviate pain symptoms by the nurse. Pt tolerated well medication and felt better. Pt Rx amoxicillin and Viscous Lidocaine PO as directed below. Advised to continue taking Tylenol PO and Pt strongly advised to f/u with her Dentist appt on Friday for further evaluation and treatment. D/C instructions explained. Pt understood and agreed with plan of care. - Differential Dx/Diagnosis Differential Diagnosis/Dx: Dental Abscess, Dental Caries, Fractured Tooth, Gingivitis, Odontogenic Pain, Peridontic Disease, Peritonsillar Abcess Provider Diagnosis: Dental abscess Discharge - Sign-Out/Discharge Documenting (check all that apply): Patient Departure - D/c home All imaging exams completed and their final reports reviewed: No Studies - Discharge Plan Condition: Stable Disposition: HOME Prescriptions: Amoxicillin PO (*) [Amoxicillin 500 MG CAP*] 500 mg PO TID #30 cap Lidocaine 2% VISCOUS* [Xylocaine 2% Viscous*] 15 ml SWISH SPIT Q6H PRN #1 btl PRN Reason: dental pain Patient Education Materials: Dental Abscess (ED) Referrals: Pj Bell MD [Primary Care Provider] - 2 Days Additional Instructions: 1-Please take full course of antibiotics to avoid resistance. Manas yogurt w/ probiotics or culturelle to protect your GI system 2-Continue taking Tylenol PO to alleviate pain and swelling. apply Viscous Lidocaine as directed to alleviate pain 3- F/u with your Dentist appt this coming Friday for further management - Billing Disposition and Condition Condition: STABLE Disposition: Home - Attestation Statements Provider Attestation: Per institutional requirements, I have reviewed the chart, however, I was not consulted specifically or made aware of this patient by the midlevel provider. I did not personally evaluate, interact with , or disposition this patient.
[2018-12-28] MEDS ORDERED: Lidocaine 2% VISCOUS* 15 ML UDC SWISH SPIT ONE (19:42)
== END 2018-12-28 20:00 | disposition home or self-care (01) ==
LOC: UCEAST 19:11
DX: K04.7 Periapical abscess without sinus (principal); I10 Essential (primary) hypertension; F41.9 Anxiety disorder, unspecified; F32.9 Major depressive disorder, single episode, unspecified; Z98.84 Bariatric surgery status
CPT/HCPCS: 99212; G0463

== ENCOUNTER 2019-03-11 10:32 | Emergency (ER) | payer OTHER ==
--- OUTSIDE RECORDS SUMMARY | 2019-03-11 10:38 | XMS REPORT | Continuity of Care Document ---
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 Gastroesophageal reflux disease Pj Dacosta MD Onset: 08/09/2010 Obesity Pj Dacosta MD Onset: 11/29/2009 Benign essential hypertension Pj Dacosta MD Onset: 11/29/2009 Depressive disorder Pj Dacosta MD Onset: 09/26/2014 Mild recurrent major depression Pj Dacosta MD Onset: 05/31/2015 History of bariatric surgical procedure Pj Dacosta MD Onset: 2015 Migraine with aura Pj Dacosta MD Onset: 10/27/2018 Social History Type Date Description Comments Sex Unknown ETOH Use Rarely consumes alcohol Tobacco Use Start: Unknown Patient has never smoked Smoking Status Reviewed: 01/25/19 Patient has never smoked Allergies, Adverse Reactions, Alerts Active Allergies Reaction Severity Comments Date NSAIDS 01/23/2015 Codeine Hives and lots of itching 01/25/2019 Inactive Allergies NKDA 07/27/2014 Medications Active Medications SIG Qnty Indications Ordering Provider Date Escitalopram Oxalate 1/2 pill by 30tabs F33.0 Praneeth, 01/25/2019 10mg mouth every day JUAN ANTONIO Renee Tablets x4 days then 1 pill daily Ferrous Sulfate 1 by mouth once otc D50.9 Praneeth, 11/02/2018 325(65Fe) daily w/ food MD Pj mg Tablets Z98.84 Cyclobenzaprine HCL 1 tablet by mouth 30tabs M54.5 Pj Dacosta, 5mg before bedtime as MD Tablets needed for back pain Lisinopril Take 1 Tablet By 30tabs I10 Pj Dacosta, 03/30/2018 20mg Tablets Mouth Once Daily MD Amitriptyline HCL take one tablet 30tabs R51 Pj Dacosta, 2017 25mg by mouth at MD Tablets bedtime as needed Venlafaxine HCL ER Take 3 Capsules 90caps F33.0 Pj Dacosta, 03/03 75mg Caps By Mouth Once MD ER 24HR Daily F32.9 Vitamin B-12 1 by mouth every OTC Z98.84 Pj Dacosta MD 2017 1000mcg day Tablets E53.9 Biotin Daily Z98.84 Pj Dacosta, 05/23/2016 5mg Capsules MD Ghazal Brunner 2 by mouth every OTC Z98.84 Pj Dacosta, 04/2015 60mg day Chewtacory Calcium 650/Vitamin D 2 by mouth every Z98.84 Pj Dacosta, 2014 day [id number] Tablets Topiramate 1 by mouth twice G43.101 Kt Gardner 50mg Tablets a day History Medications Benzonatate 1 by mouth every 8 60caps J06.9 Praneeth, 09/21/2018 - 200mg hours as needed JUAN ANTONIO Renee 10/15/2018 Capsules for cough, may cause drowsiness Immunizations CPT Code Status Date Vaccine Reaction Lot # [id number] Given 12/02/2017 Tdap (Adacel) Ages 7 And Above Only Q2035 Given 03/31/2017 Afluria Imunization [facility] Q2035 Refused 03/03/2018 Afluria Imunization Vital Signs Date Vital Result Comment 01/25/2019 11:35am Weight 174.25 lb Heart Rate 84 /min BP Systolic 118 mmHg BP Diastolic 78 mmHg Respiratory Rate 18 /min Height 62.25 inches 5'2.25" BMI (Body Mass Index) 31.6 kg/m2 10/27/2018 2:01pm Weight 175.00 lb Heart Rate 66 /min BP Systolic 120 mmHg BP Diastolic 80 mmHg Respiratory Rate 18 /min Height 62.25 inches 5'2.25" BMI (Body Mass Index) 31.7 kg/m2 Results Test Date Facility Test Result H/L Range Note CBC with Auto Diff-fcmg 10/27/2018 [facility] WBC 4.8 K/uL 4.1-11.0 1 RBC 4.21 M/uL 4.00-5.40 Hemoglobin 10.1 gm/dL Low 12.0-16.0 Hematocrit 31.4 % Low 36.0-47.0 MCV 74.7 fL Low 80.0-97.0 MCH 24.0 pg Low 27.0-32.0 MCHC 32.1 g/dL 32.0-36.0 RDW 17.3 % High 11.5-14.5 PLT Count 410 K/ul High 140-400 MPV 8.0 FL 7.1-10.7 Neutrophil 52.2 % 35.0-75.0 Lymphocyte 39.6 % 16.0-52.0 Monocyte 6.4 % 2.0-10.0 Eosinophil 1.4 % 0.0-5.0 Basophil 0.4 % 0.0-4.0 Abs Neutrophils 2.5 K/uL 2.1-8.0 Abs Lymphocytes 1.9 K/uL 0.8-5.5 Abs Monocytes 0.3 K/uL 0.1-1.0 Abs Eosinophils 0.1 K/uL 0.0-0.5 Abs Basophils 0.0 K/uL 0.0-0.3 Laboratory test finding 10/27/2018 [facility] Vitamin B12 144 pg/mL Low 180- 914 Vitamin D 25 Hydroxy 36 ng/mL 30-100 2 Magnesium 2.0 mg/dL 1.5-2.7 Ferritin 3.1 ng/ml Low 11.0-306.8 Laboratory test 09/21/2018 [facility] Throat Culture Microbiology res <SEE 3 finding NOTE> 1 Draw 10/27 after OC 2 Clinical Guidelines for recommended serum 25(OH)Vitamin D Deficient at less than 20 ng/mL Insufficient at 20 to <30 ng/mL Sufficient at 30-100 ng/mL Toxicity at greater than 100 ng/mL 3 Microbiology results RESULT Normal throat moises.No beta hemolytic streptococci isolated. Procedures Date Code Description Status 01/25/2019 43616 Brief Emotional/Behav Assessment W/ Scoring Doc Per Completed Standard Inst 10/27/2018 46775 Brief Emotional/Behav Assessment W/ Scoring Doc Per Completed Standard Inst 09/21/2018 03379 Measure Blood Oxygen Level Single Determination Completed 07/30/2017 [id number] Mammogram Completed Medical Devices Description No Information Available Encounters Type Date Location Provider Dx Diagnosis Office Visit 10/27/2018 [facility] Pj Dacosta, I10 Essential (primary) 2:15p hypertension K21.9 Gastro-esophageal reflux disease without esophagitis Z98.84 Bariatric surgery status F33.0 Major depressive disorder, recurrent, mild Z68.31 Body mass index (BMI) 31.0-31.9, adult E66.9 Obesity, unspecified G43.101 Migraine with aura, not intractable, with status migrainosus Office Visit 09/21/2018 10:30a [facility] Zara Dacostaricia, J06.9 Acute upper A[employer]LYTICS LEADER respiratory infection, unspecified Z68.31 Body mass index (BMI) 31.0-31.9, adult Office Visit 07/29/2018 2:15p [facility] Pj Dacosta MD M54.5 Low back pain M70.61 Trochanteric bursitis, RIGHT hip I10 Essential (primary) hypertension Z68.32 Body mass index (BMI) 32.0-32.9, adult Assessments Date Code Description Provider 01/25/2019 F33.0 Major depressive disorder, recurrent, Digiovanna, Thelma , ANALYTICS LEADER mild 01/25/2019 F41.9 Anxiety disorder, unspecified Digiovanna, Thelma, ANALYTICS LEADER 10/27/2018 Z98.84 Bariatric surgery status Pj Dacosta MD 10/27/2018 I10 Essential (primary) hypertension Pj Dacosta MD 10/27/2018 K21.9 Gastro-esophageal reflux disease without Pj Dacosta MD esophagitis 10/27/2018 Z98.84 Bariatric surgery status Pj Dacosta MD 10/27/2018 F33.0 Major depressive disorder, recurrent, Pj Dacosta MD mild 10/27/2018 Z68.31 Body mass index (BMI) 31.0-31.9, adult Pj Dacosta MD 10/27/2018 E66.9 Obesity, unspecified Pj Dacosta MD 10/27/2018 G43.101 Migraine with aura, not intractable, with Pj Dacosta MD status migrainosus 10/27/2018 Z98.84 Bariatric surgery status Schedule, Laboratory 10/27/2018 Z98.84 Bariatric surgery status [facility] 09/21/2018 J06.9 Acute upper respiratory infection, Thelma Dacosta, ANALYTICS LEADER unspecified 09/21/2018 Z68.31 Body mass index (BMI) 31.0-31.9, adult Thelma Dacosta ANALYTICS LEADER 09/21/2018 J06.9 Acute upper respiratory infection, [facility] unspecified 07/29/2018 M54.5 Low back pain Pj Dacosta MD 07/29/2018 M70.61 Trochanteric bursitis, RIGHT hip Pj Dacosta MD 07/29/2018 I10 Essential (primary) hypertension Pj Dacosta MD 07/29/2018 Z68.32 Body mass index (BMI) 32.0-32.9, adult Pj Dacosta MD Plan of Treatment Future Appointment(s):02/02/2019 2:15 pm - Pj Dacosta MD at [facility]2018 - Thelma Dacosta NPF33.0 Major depressive disorder, recurrent, mildNew Medication:Escitalopram Oxalate 10 mg - 1/2 pill by mouth every day x4 days then 1 pill dailyComments:Will add Escitalopram to Venlafaxine.Follow through with plan to resume counselingFollow up:As [id number] Anxiety disorder, unspecifiedComments:Restart counselingWill add Escitalopram to Venlafaxine Functional Status Description No Information Available Mental Status Description No Information Available Referrals Description No Information Available
[2019-03-11 10:44] VITALS: BP 137/81
--- NOTE | 2019-03-11 10:48 | UC ---
Dental HPI - HPI Summary HPI Summary: 43 yo female presents with b/l TMJ pain. She tells me that about 2-3 weeks ago she had a left upper tooth extracted at her dentist's office. Since that time she has had b/l TMJ pain right worse than left. Pain is worse with eating and opening and closing her jaw. She has been taking tylenol for this with no relief. She denies fever or chills. She tells me that she has a history of a "cracked jaw" during a dental procedure in the past when they made her open her mouth too wide. - History of Current Complaint Chief Complaint: UCHeadache Stated Complaint: DENTAL PAIN Time Seen by Provider: 03/11/19 10:48 Hx Obtained From: Patient Hx Last Menstrual Period: 03/11/19 Onset/Duration: Sudden Onset Severity: Moderate Pain Intensity: 8 Pain Scale Used: 0-10 Numeric - Allergies/Home Medications Allergies/Adverse Reactions: Allergies Allergy/AdvReac Type Severity Reaction Status Date / Time codeine Allergy Itching Verified 03/11/19 10:44 NSAIDS (Non-Steroidal AdvReac gastric Verified 12/28/18 19:25 Anti-Inflamma bypass PMH/Surg Hx/FS Hx/Imm Hx - Additional Past Medical History Additional PMH: Gastric bypass Cardiovascular History: Hypertension Neurological History: Other - Headaches Psychological History: Anxiety, Depression - Surgical History Surgical History: Yes Surgery Procedure, Year, and Place: Gastric bypass 2010. cholecystectomy 2011. sinus surgery 2005 - Family History Known Family History: Positive: Hypertension, Diabetes Negative: Cardiac Disease - Social History Lives: With Family Alcohol Use: Occasionally Substance Use Type: None Smoking Status (MU): Never Smoked Tobacco When Did the Patient Quit Smoking/Using Tobacco: 1997 - Immunization History Most Recent Influenza Vaccination: Fall 2013 Vaccination Up to Date: Yes Review of Systems All Other Systems Reviewed And Are Negative: No Constitutional: Positive: Negative Skin: Positive: Negative Respiratory: Positive: Negative Cardiovascular: Positive: Negative Musculoskeletal: Positive: Other: - TMJ pain Neurological: Positive: Negative Psychological: Positive: Negative Physical Exam - Summary Physical Exam Summary: GENERAL: NAD. WDWN. No pain distress. SKIN: No rashes, sores, lesions, or open wounds. HEENT: Head: AT/NC. Mild TTP at right TMJ. Pain at b/l TMJ with open and closing mouth R>L Eyes: EOM intact. Conjunctiva clear without inflammation or discharge. Ears: Hearing grossly normal. TMs intact, no bulging, erythema, or edema. Nose: Nasal mucosa pink and moist. NTTP maxillary and frontal sinus. Throat: Posterior oropharynx without exudates, erythema, or tonsillar enlargement. Uvula midline. NECK: Supple. Nontender. No lymphadenopathy. CHEST: CTAB. No r/r/w. No accessory muscle use. Breathing comfortably and in no distress. CV: RRR. Without m/r/g. Pulses intact. Cap refill <2seconds NEURO: Alert. PSYCH: Age appropriate behavior. Triage Information Reviewed: Yes Vital Signs: Initial Vital Signs Temp 97.1 F 03/11/19 10:39 Pulse 106 03/11/19 10:39 Resp 16 03/11/19 10:39 BP 137/81 03/11/19 10:39 Pulse Ox 100 03/11/19 10:39 Vital Signs Reviewed: Yes Dental: Negative: Dental Fracture @, Abscess @, Cellulitis @ Diagnostics - Radiology TMJ Radiology Interpretation Completed By: Radiologist Summary of Radiographic Findings: IMPRESSION: NO ACUTE OSSEOUS INJURY. INCOMPLETE EXCURSION WITH JAW OPENING. IF THERE IS PERSISTENT CLINICAL CONCERN FOR INTERNAL DERANGEMENT, CONSIDER MRI OF THE TEMPOROMANDIBULAR JOINTS IN THE NONACUTE SETTING. Dental Complaint Course/Dx - Course Course Of Treatment: Discussed results with pt. Suspect TMJ syndrome vs muscle strain from dental procedure. Unfortunately, she cannot take NSAIDs - therefore I recommended continuing tylenol and avoiding hard to chew foods. We discussed a referral to physical therapy, but she did not want to do this at this time. - Differential Dx/Diagnosis Provider Diagnosis: Temporomandibular joint (TMJ) pain Discharge ED - Sign-Out/Discharge Documenting (check all that apply): Patient Departure All imaging exams completed and their final reports reviewed: Yes - Discharge Plan Condition: Stable Disposition: HOME Patient Education Materials: Temporomandibular Disorder (ED) Referrals: Pj Bell MD [Primary Care Provider] - Additional Instructions: If you develop a fever, shortness of breath, chest pain, new or worsening symptoms - please call your PCP or go to the ED immediately. Rest and avoid hard to chew foods. May continue tylenol as directed - Billing Disposition and Condition Condition: STABLE Disposition: Home
== END 2019-03-11 11:57 | disposition home or self-care (01) ==
LOC: UCEAST 10:32
DX: R68.84 Jaw pain (principal); I10 Essential (primary) hypertension; R51 Headache; F41.9 Anxiety disorder, unspecified; F32.9 Major depressive disorder, single episode, unspecified; Z98.84 Bariatric surgery status; Z88.5 Allergy status to narcotic agent
CPT/HCPCS: 70330; 99211; G0463

== ENCOUNTER 2019-05-13 19:51 | Emergency (ER) | payer OTHER ==
[2019-05-13] MEDS ORDERED: PROCHLORPERAZINE INJ 5 MG/ML 2 ML VIAL IV ONE (20:23)
[2019-05-13] MEDS ORDERED: NS 0.9% 1000 ML** 1,000 ML IV ONE (20:23)
[2019-05-13] MEDS ORDERED: diPHENhydraMINE IV* 50 MG/ML 1 ml VIAL (BENADRYL) SLOW PUSH ONE (20:23)
--- NOTE | 2019-05-13 20:34 | ED ---
Headache - HPI Summary HPI Summary: 43-year-old female presents with headache for the past 5 days. She states this is not the worst headache of her life. States that has history of migraines. States that it feels like her normal migraine except that it is lasting longer than normal. She normally takes Tylenol which has been helping a little bit. She denies any fevers. No sinus congestion. No sore throat. No recent illness. States she just feels very weak. She admits to occasional dizziness that makes her anxious. she denies any current dizzy. she denies any chest pain shortness of breath. No vomiting nausea or diarrhea. She admits to photophobia. Denies any change in vision. - History Of Current Complaint Chief Complaint: EDDizziness Stated Complaint: HEADACHE NOT FEELING WEAK Time Seen by Provider: 05/13/19 20:13 Hx Last Menstrual Period: 03/11/19 - Allergies/Home Medications Allergies/Adverse Reactions: Allergies Allergy/AdvReac Type Severity Reaction Status Date / Time codeine Allergy Itching Verified 05/13/19 19:55 NSAIDS (Non-Steroidal AdvReac gastric Verified 05/13/19 19:55 Anti-Inflamma bypass Home Medications: Home Medications Mirtazapine TAB* [Remeron TAB*] 0.5 tab PO DAILY 05/13/19 [History Confirmed ] PMH/Surg Hx/FS Hx/Imm Hx Endocrine/Hematology History: Denies: Hx Diabetes, Hx Thyroid Disease Cardiovascular History: Reports: Hx Hypertension Respiratory History: Denies: Hx Asthma, Hx Chronic Obstructive Pulmonary Disease (COPD) GI History: Reports: Hx Gastroesophageal Reflux Disease - no problem recently Denies: Hx Ulcer History: Reports: Hx Kidney Stones - one known stone Musculoskeletal History: Denies: Hx Scoliosis Sensory History: Reports: Hx Contacts or Glasses - inst glasses day of or Denies: Hx Hearing Aid Opthamlomology History: Reports: Hx Contacts or Glasses - inst glasses day of or Neurological History: Denies: Hx Headaches, Other Neuro Impairments/Disorders - Surgical History Surgery Procedure, Year, and Place: Gastric bypass 2010. cholecystectomy 2011. sinus surgery 2005 Hx Anesthesia Reactions: Yes - n/v Infectious Disease History: No Infectious Disease History: Reports: Hx of Known/Suspected MRSA - 2018, nares Denies: Hx Clostridium Difficile, Hx Hepatitis, Hx Human Immunodeficiency Virus (HIV), Hx Shingles, Hx Tuberculosis, Hx Known/Suspected VRE, Hx Known/ Suspected VRSA, History Other Infectious Disease, Traveled Outside the [place] in Last 30 Days - Family History Known Family History: Positive: Hypertension, Diabetes Negative: Cardiac Disease - Social History Alcohol Use: Occasionally Hx Substance Use: No Substance Use Type: Reports: None Hx Tobacco Use: Yes Smoking Status (MU): Never Smoked Tobacco Review of Systems Negative: Fever Negative: Chest Pain Negative: Shortness Of Breath Negative: Vomiting, Nausea Positive: Headache All Other Systems Reviewed And Are Negative: Yes Physical Exam Triage Information Reviewed: Yes Vital Signs On Initial Exam: Initial Vitals Temp Pulse Resp BP Pulse Ox 99.0 F 99 18 137/87 98 05/13/19 19:55 05/13/19 19:55 05/13/19 19:55 05/13/19 19:55 05/13/19 19:55 Vital Signs Reviewed: Yes Appearance: Positive: Well-Appearing Skin: Positive: Warm, Dry Head/Face: Positive: Normal Head/Face Inspection Eyes: Positive: Normal, EOMI, ABHISHEK, Conjunctiva Clear ENT: Positive: Normal ENT inspection, Pharynx normal, TMs normal Respiratory/Lung Sounds: Positive: Clear to Auscultation, Breath Sounds Present Cardiovascular: Positive: Normal, RRR Musculoskeletal: Positive: Normal Neurological: Positive: Sensory/Motor Intact, Alert, Oriented to Person Place, Time, CN Intact II-III Psychiatric: Positive: Normal Procedures - Sedation Patient Received Moderate/Deep Sedation with Procedure: No Diagnostics - Vital Signs Vital Signs Temp Pulse Resp BP Pulse Ox 05/13/19 19:55 99.0 F 99 18 137/87 98 - Laboratory Result Diagrams: 05/13/19 20:46 05/13/19 20:46 Lab Statement: Any lab studies that have been ordered have been reviewed, and results considered in the medical decision making process. - EKG No standard instances Cardiac Rate: NL EKG Rhythm: Sinus Rhythm EKG Comparison: No Significant Change Summary of EKG Findings: sinus rhythm Re-Evaluation - Re-Evaluation First Eval Re-Evaluation Time: 21:32 Change: Improved Comment: feeling better, would like to go home Headache Course/Dx - Course Course Of Treatment: 43-year-old female presents with headache for the past 5 days. She states this is not the worst headache of her life. States that has history of migraines. States that it feels like her normal migraine except that it is lasting longer than normal. She normally takes Tylenol which has been helping a little bit. She denies any fevers. No sinus congestion. No sore throat. No recent illness. States she just feels very weak. She admits to occasional dizziness that makes her anxious. she denies any current dizzy. she denies any chest pain shortness of breath. No vomiting nausea or diarrhea. She admits to photophobia. Denies any change in vision. On exam has normal neuro exam. lab work wnl. Gave Compazine and Benadryl and feeling better. We' ll discharge to follow up primary. Patient understands and agrees with plan. - Diagnoses Provider Diagnoses: Headache Discharge ED - Sign-Out/Discharge Documenting (check all that apply): Patient Departure - Discharge Plan Condition: Good Disposition: HOME Patient Education Materials: Acute Headache (ED) Referrals: Pj Bell MD [Primary Care Provider] - Additional Instructions: Take Tylenol or ibuprofen for pain every 6 hours Follow up with primary within 5 days Return to ED if develop any new or worsening symptoms - Billing Disposition and Condition Condition: GOOD Disposition: Home
[2019-05-13 20:53] LABS: ABS Lymphocytes 2.6 10^3/ul (1.0-4.8); ABS Monocytes 0.5 10^3/ul (0-0.8); Hematocrit 35 % (35-47); Hemoglobin 11.4 g/dL (12.0-16.0); Lymphocyte % 23.1 %; Mean Corpuscular HGB Conc 33 g/dL (31-36); Mean Corpuscular Hemoglobin 27 pg (27-31); Mean Corpuscular Volume 82 fL (80-97); Mean Platelet Volume 7.2 fL (7.4-10.4); Platelet Count 345 10^3/uL (150-450); Red Blood Count 4.24 10^6 /uL (3.70-4.87); Red Cell Distribution Width 17 % (10-15)
[2019-05-13 21:09] LABS: ALT 21 U/L (7-52); AST 16 U/L (13-39); Albumin/Globulin Ratio 1.2 (1-3); Alkaline Phosphatase 120 U/L (34-104); Anion Gap 7 mmol/L (2-11); BUN/Creatinine Ratio 19.1 (8-20); Blood Urea Nitrogen 13 mg/dL (6-24); C Reactive Protein 2.56 mg/L (<8.01); CO2 Carbon Dioxide 22 mmol/L (22-32); Calcium 9.2 mg/dL (8.6-10.3); Chloride 111 mmol/L (101-111); EGFR African American 114.3 (>60); EGFR Non-African American 94.4 (>60); Globulin 3.3 g/dL (2-4); Glucose 98 mg/dL (70-100); Potassium 3.9 mmol/L (3.5-5.0); Sodium 140 mmol/L (135-145); Total Protein 7.3 g/dL (6.4-8.9)
[2019-05-13 21:14] LABS: HCG Pregnancy < 0.60 mIU/mL
[2019-05-13 21:46] VITALS: BP 0/0
--- OUTSIDE RECORDS SUMMARY | 2019-05-18 14:35 | XMS REPORT | Continuity of Care Document ---
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 Onset: 02/20/2017 Social History Type Date Description Comments Sex Unknown Tobacco Use Start: Unknown Never Smoked Cigarettes ETOH Use Currently consumes alcohol socially Recreational Drug Use Denies Drug Use Tobacco Use Start: Unknown Patient denies history of smoking Smoking Status Reviewed: 03/24/19 Patient denies history of smoking Enjoy Exercising Patient enjoys 3-4 TIMES PER WEEK exercising Tattoo/Piercing Negative For Tattoo Tattoo/Piercing Pierced ears Allergies, Adverse Reactions, Alerts Active Allergies Reaction Severity Comments Date NSAIDs gastric bypass 12/08/2018 Codeine Hives, Itching 03/24/2019 Inactive Allergies NKDA 04/24/2010 NKDA 12/08/2018 Medications Active Medications SIG Qnty Indications Ordering Provider Date Amoxicillin/Clavulana 1 by mouth twice 20tabs J01.00 Darren, 2018 te Potassium a day INES Charles 875-125mg Tablets Tylenol 8 Hour 1 tab every 6 60tabs Isaiah Garcia M.D. 02/26/2017 650mg hours as needed Tablets ER Flintstones Unknown Vitamin B-12 Unknown 1000mcg Tablets Sub Calcium Unknown 500mg Tablets Biotin Unknown 5mg Capsules Venlafaxine HCL ER Digiovanna, Pj Ely MD 150mg Caps ER 24HR Lisinopril 1 by mouth every Unknown 20mg Tablets day Mirtazapine 1 tab by mouth Unknown 7.5mg at bedtime Tablets History Medications Tramadol HCL 1 tablet by 7tabs M25.572 Genie Brower MD 12/08/2018 - 50mg mouth every 24 03/24/2019 Tablets hours as needed pain Immunizations Description No Information Available Vital Signs Date Vital Result Comment 03/24/2019 2:33pm BP Systolic 141 mmHg BP Diastolic 92 mmHg Body Temperature 98.2 F Heart Rate 80 /min Height 61 inches 5'1" Weight 187.00 lb BMI (Body Mass Index) 35.3 kg/m2 BSA (Body Surface Area) 1.84 m2 Bayard body weight in kilograms 48 kg O2 % BldC Oximetry 98 % Pain Level 9 Nose/Sinus 12/08/2018 2:18pm BP Systolic 112 mmHg BP Diastolic 78 mmHg Body Temperature 98.2 F Heart Rate 81 /min Height 61 inches 5'1" Weight 174.00 lb BMI (Body Mass Index) 32.9 kg/m2 BSA (Body Surface Area) 1.78 m2 Bayard body weight in kilograms 48 kg O2 % BldC Oximetry 97 % Results Description No Information Available Procedures Date Code Description Status 12/08/2018 25877 Radiology, Ankle Complete Completed Medical Devices Description No Information Available Encounters Type Date Location Provider Dx Diagnosis Office Visit 03/24/2019 [facility] In [facility] Darren J01.Ricardo Acute maxillary 2:30p Cristy Benavidez, sinusitis, 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 Office Visit 12/08/2018 Orthopaedic Office Genie Brower M25.572 Pain in left ankle 2:00p MD and joints of left foot M65.879 Other synovitis and tenosynovitis, unsp ankle and foot Z87.81 Personal history of (healed) traumatic fracture Assessments Date Code Description Provider 03/24/2019 J01.00 Acute maxillary sinusitis, 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 Maintain good clear fluid intake to stay well hydrated. Frequent handwashing to prevent spread of germs. Please avoid exposure to tobacco smoke and/or polluted air. You can use OTC cough and cold medications to help with symptoms if needed. Take Tylenol (acetaminophen), Advil(ibuprofen), or alleve(naproxen) as needed for fever or aches, dosage accordingto package directions. Please follow-up with your primary care provider within 1 week for recheck. Functional Status Functional Condition Comment Date Status Independent with all ADL's Active Independent with all IADL's Active Mental Status Description No Information Available Referrals Description No Information Available
--- OUTSIDE RECORDS SUMMARY | 2019-05-18 14:35 | XMS REPORT | Continuity of Care Document ---
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 Recreational Drug Use Denies Drug Use Allergies, Adverse Reactions, Alerts Active Allergies Reaction Severity Comments Date NSAIDs Pt had gastric bypass 01/23/2015 Medications Active Medications SIG Qnty Indications Ordering Provider Date Vitamin B12 daily Unknown 100mcg Tablets Calcium + D Unknown [id number] Tablets Lisinopril 1 by mouth every Unknown 10mg Tablets day Venlafaxine HCL ER every day Unknown 150mg Tablets ER 24HR Mirtazapine Unknown 15mg Tablets Biotin daily Unknown 300mcg Tablets Ferrous Sulfate Unknown 325(65Fe) mg Tablets Immunizations Description No Information Available Vital Signs Date Vital Result Comment 04/06/2019 9:40am Weight 189.00 lb Height 61 inches 5'1" BMI (Body Mass Index) 35.7 kg/m2 BP Systolic 114 mmHg BP Diastolic 76 mmHg Heart Rate 96 /min O2 % BldC Oximetry 98 % Body Temperature 97.6 F Pain Level 9 04/09/2017 2:15pm Weight 170.00 lb Height 61 inches 5'1" BMI (Body Mass Index) 32.1 kg/m2 BP Systolic 132 mmHg BP Diastolic 88 mmHg Heart Rate 92 /min O2 % BldC Oximetry 98 % Body Temperature 98.0 F Pain Level 6 Results Description No Information Available Procedures Description No Information Available Medical Devices Description No Information Available Encounters Description No Information Available Assessments Description No Information Available Plan of Treatment No Information Available Functional Status Description No Information Available Mental Status Description No Information Available Referrals Description No Information Available
== END 2019-05-13 21:44 | disposition home or self-care (01) ==
LOC: ED 19:51
DX: R51 Headache (principal); I10 Essential (primary) hypertension; Z98.84 Bariatric surgery status; Z90.49 Acquired absence of other specified parts of digestive tract; Z87.442 Personal history of urinary calculi; Z79.899 Other long term (current) drug therapy; Z88.5 Allergy status to narcotic agent; Z88.8 Allergy status to other drugs, medicaments and biological substances
CPT/HCPCS: 36415; 80053; 83735; 84702; 85025; 86140; 93005; 96361; 96374; 96375; 99282; J0780; J1200

== ENCOUNTER 2019-06-06 16:23 | Emergency (ER) | payer SELFPAY ==
[2019-06-06 16:35] VITALS: BP 142/92
[2019-06-06] MEDS ORDERED: Lidocaine 2% VISCOUS* 15 ML UDC PO ONE (16:51)
--- NOTE | 2019-06-06 16:56 | UC ---
Dental HPI - HPI Summary HPI Summary: left upper dental pain at sight of recent dental extraction - History of Current Complaint Chief Complaint: UCDentalProblem Stated Complaint: DENTAL PAIN Time Seen by Provider: 06/06/19 16:32 Hx Obtained From: Patient Hx Last Menstrual Period: week and a half ago ?: No Onset/Duration: Sudden Onset, Lasting Days - 1 Pain Intensity: 9 Pain Scale Used: 0-10 Numeric Aggravating Factor(s): Chewing Alleviating Factor(s): Nothing Related History: Previous Dental Care on Same Tooth - Allergies/Home Medications Allergies/Adverse Reactions: Allergies Allergy/AdvReac Type Severity Reaction Status Date / Time codeine Allergy Itching Verified 06/06/19 16:35 NSAIDS (Non-Steroidal AdvReac gastric Verified 06/06/19 16:35 Anti-Inflamma bypass Home Medications: Home Medications Acetaminophen [8Hr Arthritis Pain Relief] 1,000 tab PO ONCE PRN 06/06/19 [ History Confirmed 06/06/19] Pedi Multivit No.25/Folic Acid [Flintstones Multivit Chew Tab] 1 tab PO DAILY [History Confirmed 06/06/19] PMH/Surg Hx/FS Hx/Imm Hx Previously Healthy: No Cardiovascular History: Hypertension Psychological History: Anxiety - Surgical History Surgical History: Yes Surgery Procedure, Year, and Place: Gastric bypass 2010. cholecystectomy 2011. sinus surgery 2005. 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 [employer] Lives: With Family Alcohol Use: Rare Substance Use Type: None Smoking Status (MU): Never Smoked Tobacco When Did the Patient Quit Smoking/Using Tobacco: 1997 - Immunization History Most Recent Influenza Vaccination: Fall 2013 Vaccination Up to Date: Yes Review of Systems All Other Systems Reviewed And Are Negative: Yes Constitutional: Positive: Negative Skin: Positive: Negative Eyes: Positive: Negative ENT: Positive: Dental Pain - post extraction Respiratory: Positive: Negative Cardiovascular: Positive: Negative Gastrointestinal: Positive: Negative Genitourinary: Positive: Negative Motor: Positive: Negative Neurovascular: Positive: Negative Musculoskeletal: Positive: Negative Neurological: Positive: Negative Psychological: Positive: Negative Is Patient Immunocompromised?: No Physical Exam Triage Information Reviewed: No Appearance: Well-Appearing, No Pain Distress, Well-Nourished Vital Signs: Initial Vital Signs Temp 98.9 F 06/06/19 16:31 Pulse 99 06/06/19 16:31 Resp 18 06/06/19 16:31 BP 142/92 06/06/19 16:31 Pulse Ox 100 06/06/19 16:31 Vital Signs Reviewed: Yes Eye Exam: Normal Eyes: Positive: Conjunctiva Clear ENT Exam: Normal ENT: Positive: Normal ENT inspection, Hearing grossly normal, Pharynx normal, TMs normal, Dental tenderness - left upper dental pain at sight of extraction. Negative: Nasal congestion, Trismus, Muffled voice, Hoarse voice Dental: Positive: Abscess @ - sight of dental extract Neck exam: Normal Neck: Positive: Supple, Nontender, No Lymphadenopathy Respiratory Exam: Normal Respiratory: Positive: Chest non-tender, No respiratory distress, No accessory muscle use Cardiovascular Exam: Normal Cardiovascular: Positive: RRR, Pulses Normal, Brisk Capillary Refill Musculoskeletal Exam: Normal Musculoskeletal: Positive: Strength Intact, ROM Intact, No Edema Neurological Exam: Normal Neurological: Positive: Alert, Muscle Tone Normal Psychological Exam: Normal Skin Exam: Normal Dental Complaint Course/Dx - Course Course Of Treatment: Augmentin, tylenol, lidocaine topical, warm compress follow with dentist this week - Differential Dx/Diagnosis Provider Diagnosis: Pain, dental Discharge ED - Sign-Out/Discharge Documenting (check all that apply): Patient Departure All imaging exams completed and their final reports reviewed: No Studies - Discharge Plan Condition: Stable Disposition: HOME Prescriptions: Amoxicillin/Clavulanate TAB* [Augmentin TAB 875*] 875 mg PO BID #20 tab Patient Education Materials: Dental Abscess (ED), Hypertension (ED) Referrals: Pj Bell MD [Primary Care Provider] - 1 Week - Billing Disposition and Condition Condition: STABLE Disposition: Home
== END 2019-06-06 17:08 | disposition home or self-care (01) ==
LOC: UCEAST 16:23
DX: K08.89 Other specified disorders of teeth and supporting structures (principal); I10 Essential (primary) hypertension; Z88.6 Allergy status to analgesic agent; Z88.5 Allergy status to narcotic agent
CPT/HCPCS: 99212; G0463